=== PATIENT | male | born 1935 | race Caucasian/White ===

== ENCOUNTER 2017-05-17 10:24 | Emergency (ER) | payer MEDICARE | END 2017-05-17 11:30 | disposition home or self-care (01) | LOC: SCSER 10:24 | DX: H61.22 Impacted cerumen, left ear (principal); J32.9 Chronic sinusitis, unspecified; J31.0 Chronic rhinitis; K21.9 Gastro-esophageal reflux disease without esophagitis; I25.2 Old myocardial infarction; N40.0 Benign prostatic hyperplasia without lower urinary tract symptoms; E11.9 Type 2 diabetes mellitus without complications; I10 Essential (primary) hypertension; Z79.899 Other long term (current) drug therapy; Z79.84 Long term (current) use of oral hypoglycemic drugs | CPT/HCPCS: 99282 ==

== ENCOUNTER 2017-07-05 14:12 | Outpatient (CLI) | payer MEDICARE | END 2017-07-05 14:13 | disposition home or self-care (01) | LOC: CTENTCT 14:12 | PROVIDERS: ATTEND Specialist | DX: J34.2 Deviated nasal septum (principal) | CPT/HCPCS: 70486 ==

== ENCOUNTER 2017-07-25 12:57 | Outpatient (CLI) | payer MEDICARE ==
--- NOTE | 2017-07-25 13:34 | RAD ---
ABDOMEN ONE VIEW: History: 82-year-old male with constipation for weeks and dizzy spells. FINDINGS: There is a stable 0.6 cm diameter left lower pole renal calculus, unchanged from the prior CT of . Prominent sized left pelvic calcified phlebolith. Unremarkable abdominal gas pattern without evid ence for bowel obstruction. No evidence for extraluminal gas or free intraperitoneal air. IMPRESSION: Left renal calculus. No evidence of bowel obstruction or other acute process. POS: OFF
== END 2017-07-25 12:58 | disposition home or self-care (01) ==
LOC: SCSRAD 12:57
PROVIDERS: ATTEND Family Medicine
DX: K59.00 Constipation, unspecified (principal); N20.0 Calculus of kidney
CPT/HCPCS: 74018